=== PATIENT | female | born 1985 | race Caucasian/White ===

== ENCOUNTER 2016-02-26 15:36 | Inpatient (IN) | payer MEDICAID ==
[~2016-02-26] VITALS: Ht 154.9 cm; Wt 70.1 kg
[2016-02-26] MEDS ORDERED: PRENAT PO (16:04)
[2016-02-26 16:05] VITALS: BP 167/82; PULSE 63; RESP 18; Ht 154.9 cm; Wt 70.1 kg
[2016-02-26 16:19] LABS: ADD UMIC YES; URINE BILIRUBIN (Dip) NEGATIVE (NEGATIVE); URINE BLOOD (Dip) NEGATIVE (NEGATIVE); URINE COLOR LT. YELLOW (YELLOW); URINE GLUCOSE (Dip) NEGATIVE (NEGATIVE); URINE KETONES (Dip) NEGATIVE (NEGATIVE); URINE LEUKOCYTE ESTERASE (Dip) 2+ (NEGATIVE); URINE NITRITE (Dip) NEGATIVE (NEGATIVE); URINE TOTAL PROTEIN (Dip) NEGATIVE (NEGATIVE); URINE UROBILINOGEN (Dip) 0.2 E.U./dL (0.1-1.0)
[2016-02-26 16:32] LABS: BASOPHILS % 0.4 % (0.0-2.0); EOSINOPHILS # 0.1 10^3/ul (0.0-0.5); EOSINOPHILS % 1.1 % (0.0-7.0); HEMATOCRIT 34.9 % (37.0-47.0); HEMOGLOBIN 11.9 g/dl (12.0-16.0); LYMPHOCYTES # 1.8 10^3/ul (0.8-2.9); LYMPHOCYTES % 24.7 % (15.0-51.0); MEAN CORPUSCULAR HEMOGLOBIN 30.6 pg (29.0-33.0); MEAN CORPUSCULAR HGB CONC 34.1 g/dl (32.0-37.0); MEAN CORPUSCULAR VOLUME 89.5 fl (82.0-101.0); MEAN PLATELET VOLUME 9.1 fl (7.4-10.4); MONOCYTE # 0.5 10^3/ul (0.3-0.9); MONOCYTES % 7.6 % (0.0-11.0); NEUTROPHIL # 4.7 10^3/ul (1.6-7.5); NEUTROPHILS % 66.2 % (39.0-77.0); PLATELET COUNT 163 10^3/UL (140-440); RED CELL DISTRIBUTION WIDTH 13.4 % (11.5-14.5); UNCORRECTED WBC 7.2 10^3/ul (4.8-10.8); WHITE BLOOD COUNT 7.2 10^3/ul (4.8-10.8)
[2016-02-26 16:34] LABS: ALBUMIN 3.5 g/dl (3.3-4.9)
[2016-02-26 16:35] LABS: CONDITION 1; POTASSIUM 3.9 mmol/L (3.5-5.1)
[2016-02-26 16:36] LABS: SQUAMOUS EPITHELIAL CELL,UR MODERATE; URINE RBCS 0-2 /HPF (0)
[2016-02-26 16:37] LABS: BACTERIA,URINE MANY; BILIRUBIN,INDIRECT 0.5 mg/dl (0-1.1); BILIRUBIN,TOTAL 0.5 mg/dl (0.2-1.3); CREATININE 0.57 mg/dl (0.44-1.00)
[2016-02-26 16:38] LABS: CALCIUM 9.1 mg/dl (8.4-10.2); URIC ACID 4.9 mg/dl (3.1-7.9)
--- NOTE | 2016-02-26 17:28 | RADRPT ---
PROCEDURE: OB ultrasound for biophysical profile CLINICAL INDICATION: Hypertension TECHNIQUE: Multiple sonographic images of the pelvis were obtained. Transabdominal view of the gr avid uterus are available for review. The images were reviewed on a PACS workstation. COMPARISON: None FINDINGS: breathing movement = 2/2 tone = 2/2 motion = 2/2 AQUILINO = 2/2 AQUILINO = 15.7 cm Single live intrauterine with cardiac activity. heart rate equals 143 beats p er minute. Presentation is cephalic. The placenta is posterior. IMPRESSION: 1. Single viable intrauterine gestation. 2. Biophysical profile = 8/8. 3. AQUILINO = 15.7 cm. RPTAT: KK .Casey Rowan MD, MD Date Time Electronically viewed and signed by .Casey Rowan MD, MD on 02/26/2016 17:28 .B/
[2016-02-26] MEDS ORDERED: MAGNESIUM SULFATE 4 GM/100 ML 100 ML IV ONE (18:30)
[2016-02-26] MEDS ORDERED: LABETALOL HCL 20MG INJ IV ONE (18:30)
[2016-02-26] MEDS: LACTATED RINGER'S 1,000 ML IV SCH (18:50)
[2016-02-26] MEDS: MAGNESIUM SULFATE 20 GM/500 ML 500 ML IV SCH (19:19)
[2016-02-26] MEDS: LABETALOL 100 MG TAB PO SCH (21:00)
[2016-02-27] MEDS: MAGNESIUM SULFATE 20 GM/500 ML 500 ML IV SCH (05:30)
[2016-02-27] MEDS: LACTATED RINGER'S 1,000 ML IV SCH ×2 (05:30→18:35)
[2016-02-27] MEDS: LABETALOL 100 MG TAB PO SCH ×2 (09:00→18:07)
[2016-02-27] MEDS: FERROUS SULFATE (EC) 325 MG TAB PO SCH (09:32)
[2016-02-27] MEDS: MULTIVIT/MIN/FOLATE/IRON/PREN TAB PO SCH (09:32)
[2016-02-27] MEDS: BETAMET NA PHOS/AC(6 MG/ML) 5ML INJ IM SCH (17:49)
--- NOTE | 2016-02-27 17:55 | CONS ---
DATE OF ADMISSION: 02/26/2016 DATE OF CONSULTATION: 02/27/2016 HISTORY OF PRESENT ILLNESS: This is a triage consultation for this 30-year-old 2, para 0, ab ortion 1 with EDC of 03/23/2016, which makes her 36 weeks and 2 days now. She came to the triage ar ea due to elevated blood pressure for further evaluation. She also had an elevated alpha fetoprotei n. PHYSICAL EXAMINATION: GENERAL: She appeared to be normal. EARS, NOSE AND THROAT: Normal. NECK: Normal. No neck vein distention, no thyromegaly. CHEST: Lungs clear to auscultation and percussion. ABDOMEN: She did not have much of a contraction. heart tones normal with good variability an d accelerations and no decels. VITAL SIGNS: Her blood pressure was somewhat elevated at 150/80. Her urinalysis was normal. The P IH labs were within normal limits. Her findings were discussed with the attending physician, Dr. Perdomo, and a decision was made to dis charge the patient and to return to the clinic in 2 days for further followup care. Dictated By: SHERRI WATTS MD HF/NTS Conf#: [id number] DID#: [id number]
[2016-02-27 18:22] LABS: BASOPHILS % 0.4 % (0.0-2.0); EOSINOPHILS % 0.3 % (0.0-7.0); HEMATOCRIT 33.3 % (37.0-47.0); HEMOGLOBIN 11.4 g/dl (12.0-16.0); LYMPHOCYTES # 1.4 10^3/ul (0.8-2.9); LYMPHOCYTES % 21.1 % (15.0-51.0); MEAN CORPUSCULAR HEMOGLOBIN 30.5 pg (29.0-33.0); MEAN CORPUSCULAR HGB CONC 34.2 g/dl (32.0-37.0); MEAN CORPUSCULAR VOLUME 89.2 fl (82.0-101.0); MONOCYTE # 0.5 10^3/ul (0.3-0.9); NEUTROPHIL # 4.6 10^3/ul (1.6-7.5); NEUTROPHILS % 70.2 % (39.0-77.0); PLATELET COUNT 156 10^3/UL (140-440); RED BLOOD COUNT 3.73 10^6/ul (4.20-5.40); RED CELL DISTRIBUTION WIDTH 13.7 % (11.5-14.5); UNCORRECTED WBC 6.5 10^3/ul (4.8-10.8); WHITE BLOOD COUNT 6.5 10^3/ul (4.8-10.8)
[2016-02-27 18:27] LABS: INR 0.94; PROTIME 12.6 Sec (12.2-14.2)
[2016-02-27 18:28] LABS: ALBUMIN 3.2 g/dl (3.3-4.9); PARTIAL THROMBOPLASTIN TIME 27.3 Sec (25.0-35.0)
[2016-02-27 18:31] LABS: ALBUMIN/GLOBULIN RATIO 0.91; BILIRUBIN,INDIRECT 0.8 mg/dl (0-1.1); BILIRUBIN,TOTAL 0.8 mg/dl (0.2-1.3); CREATININE 0.61 mg/dl (0.44-1.00); TOTAL PROTEIN 6.7 g/dl (6.1-8.1)
[2016-02-27 18:32] LABS: CALCIUM 7.4 mg/dl (8.4-10.2); CONDITION 1; URIC ACID 5.8 mg/dl (3.1-7.9)
[2016-02-27 18:55] LABS: SCRET 0.61 mg/dl (0.44-1.00)
[2016-02-27 19:33] LABS: ADD UMIC YES; URINE BILIRUBIN (Dip) NEGATIVE (NEGATIVE); URINE BLOOD (Dip) NEGATIVE (NEGATIVE); URINE COLOR LT. YELLOW (YELLOW); URINE GLUCOSE (Dip) NEGATIVE (NEGATIVE); URINE KETONES (Dip) 15 (NEGATIVE); URINE LEUKOCYTE ESTERASE (Dip) 1+ (NEGATIVE); URINE NITRITE (Dip) NEGATIVE (NEGATIVE); URINE TOTAL PROTEIN (Dip) NEGATIVE (NEGATIVE); URINE UROBILINOGEN (Dip) 0.2 E.U./dL (0.1-1.0)
[2016-02-27 19:45] LABS: BACTERIA,URINE FEW; SQUAMOUS EPITHELIAL CELL,UR MODERATE; URINE RBCS NONE SEEN /HPF (0)
[2016-02-28] MEDS: LACTATED RINGER'S 1,000 ML IV SCH ×3 (02:18→15:42)
[2016-02-28] MEDS: FERROUS SULFATE (EC) 325 MG TAB PO SCH (08:39)
[2016-02-28] MEDS: MULTIVIT/MIN/FOLATE/IRON/PREN TAB PO SCH (08:39)
[2016-02-28] MEDS: LABETALOL 100 MG TAB PO SCH ×2 (08:40→20:57)
--- NOTE | 2016-02-28 11:19 | HP ---
Date/Time of Note Date/Time of Note DATE: 02/28/16 TIME: 10:55 OB - History Hx of Present Free Text/Dictation This is a 30 years old female admitted to [facility] from triage unit at 36 weeks and 2 days due to elevated blood pressure for workup for -induced hypertension This patient is being under the care of the [facility] and her course until a few days ago was uneventful she is a para 0 spontaneous 2, on admission patient's blood pressure was running on 168/96 and 171/91 and 166/87 patient has no complaints of headache blurry vision or epigastric pain, urinalysis protein is negative, 24 hours urine collection for protein and creatinine clearance has been sent out which the result will not be ready for several more days currently patient is on labetalol 100 mg twice a day and her blood pressures are since within normal. Perinatology consult requested recommended admission to antepartum unit continue to observe for any elevated blood pressure until gestational age is 37 weeks then attempt delivery, proceed with delivery only for indication Estimated Due Date: Mar 23, 2016 : 3 Para: 0 Spontaneous : 2 Care: Limited Care Ultrasounds: Normal mid trimester US Obstetrical Complications: Gestational Hypertension Medical Complications: None Past Family/Social History * Past Medical, Surgical, Family and Obstetric Histories reviewed from chart. Rubella: immune RPR/VDRL: Negative GBS Status: Unknown HBsAG: Negative OB Admission Exam Vital Signs Vital Signs Vital Signs Date Time Temp Pulse Resp B/P Pulse Ox O2 Delivery O2 Flow Rate FiO2 02/26/16 16:05 97.8 63 18 167/82 Room Air Physical Exam HEENT: WNL Heart: Rhythm Normal Lungs: Clear, Equal Abdomen: WNL Extremities: Normal Reflexes: Normal Cervical Dilatation: None Station: -2 Membranes: Intact Heart Rate: 130's Accelerations: Accelerations Present Decelerations: Variable Decelerations Contractions on Admission: None Last 72 hours Lab Results CBC & BMP 02/26/16 15:55 02/27/16 17:36 Liver Function Test 02/26/16 15:55 02/27/16 17:36 Alanine Aminotransferase (ALT/SGPT) 28 29 Albumin 3.5 3.2 L Alkaline Phosphatase 224 H 255 H Aspartate Amino Transf (AST/SGOT) 24 25 Direct Bilirubin 0.00 0.00 Total Protein 7.0 6.7 Magnesium Level Test 02/27/16 00:18 02/27/16 05:25 Magnesium Level 5.5 *H 6.1 *H ERIC OKEEFE MD Feb 28, 2016 11:13
[2016-02-28] MEDS: BETAMET NA PHOS/AC(6 MG/ML) 5ML INJ IM SCH (18:18)
[2016-02-29] MEDS: LACTATED RINGER'S 1,000 ML IV SCH ×4 (03:33→23:59)
[2016-02-29] MEDS ORDERED: MULTIVIT/MIN/FOLATE/IRON/PREN TAB PO SCH (09:00)
[2016-02-29] MEDS: FERROUS SULFATE (EC) 325 MG TAB PO SCH (09:10)
[2016-02-29] MEDS: MULTIVIT/MIN/FOLATE/IRON/PREN TAB PO SCH (09:10)
[2016-02-29] MEDS: LABETALOL 100 MG TAB PO SCH ×2 (09:11→21:16)
[2016-02-29 12:06] LABS: BASOPHILS % 0.2 % (0.0-2.0); HEMATOCRIT 30.1 % (37.0-47.0); HEMOGLOBIN 10.2 g/dl (12.0-16.0); LYMPHOCYTES # 1.4 10^3/ul (0.8-2.9); LYMPHOCYTES % 16.3 % (15.0-51.0); MEAN CORPUSCULAR HEMOGLOBIN 30.6 pg (29.0-33.0); MEAN CORPUSCULAR HGB CONC 33.9 g/dl (32.0-37.0); MEAN CORPUSCULAR VOLUME 90.2 fl (82.0-101.0); MEAN PLATELET VOLUME 9.2 fl (7.4-10.4); MONOCYTE # 0.4 10^3/ul (0.3-0.9); MONOCYTES % 4.5 % (0.0-11.0); NEUTROPHIL # 6.6 10^3/ul (1.6-7.5); PLATELET COUNT 150 10^3/UL (140-440); RED BLOOD COUNT 3.33 10^6/ul (4.20-5.40); RED CELL DISTRIBUTION WIDTH 13.4 % (11.5-14.5); UNCORRECTED WBC 8.4 10^3/ul (4.8-10.8); WHITE BLOOD COUNT 8.4 10^3/ul (4.8-10.8)
[2016-02-29 12:08] LABS: CONDITION 1
--- NOTE | 2016-02-29 19:28 | PN ---
Date/Time of Note Date/Time of Note DATE: 02/29/16 TIME: 19:26 OB Subjective Subjective Subjective Resting in bed has no complain of headache blurry vision or epigastric pain her current blood pressure is148/73 today she is 36 weeks and 5 days in 2 days at 37 weeks and we are planning for induction per recommendation of perinatologist ERIC OKEEFE MD Feb 29, 2016 19:28
--- NOTE | 2016-02-29 21:25 | NSTRPT ---
NST Information Datetime Report Generated by CPN: 02/29/2016 21:24 Datetime: 02/26/2016 14:13 NST Information EGA: 36.2 Test Number: 7 Time on Monitor: 02/26/2016 14:31 Time off Monitor: 02/26/2016 14:51 NST Duration (Min): 20 Reason for NST: Other Reason for NST Other: Abn AFP, elevated risk NTD Test and Monitor Explained: Monitor Explained; Test Explained Temp : 97.9 Pulse: 62 Resp: 16 SBP: 146 DBP: 87 Test Evaluation NST Interventions: None Patient States Movement: Present Contraction Frequency: NO UC FHR Baseline : 135 Variability: Moderate 6-25bpm Accelerations: 15X15 Decelerations: None FHR Category: Category I NST Results: Reactive Comments: To u/s, CEPHALIC, AQUILINO 15.1 BP 154/93, 150/84, 149/85. NST/AQUILINO reviewed with Dr Zimmer, recommends eval for PIH. 1504-Report c alled to Dr Perdomo, orders received. Report called to Triage. 1518-POC explained to pt, denies furth er questions at this time, pt to triage Electronically Signed By E-Signature: with User ID: [id number] Datetime: 02/22/2016 14:08 NST Information EGA: 35.5 NST Duration (Min): 28 Datetime: 02/20/2016 14:21 NST Information EGA: 35.3 NST Duration (Min): 56 Datetime: 02/15/2016 15:13 NST Information EGA: 34.5 NST Duration (Min): 29 Datetime: 02/13/2016 15:18 NST Information EGA: 34.3 NST Duration (Min): 33 Datetime: 02/08/2016 13:25 NST Information EGA: 33.5 NST Duration (Min): 29 Datetime: 02/05/2016 13:29 NST Information EGA: 33.2 Datetime: 02/05/2016 13:22 NST Duration (Min): 27
[2016-03-01] VITALS (21 sets, daily range): BP systolic 117–150; BP diastolic 60–97; PULSE 60–77; RESP 18–20
[2016-03-01] MEDS ORDERED: LIDOCAINE 1% (MPF) 30 ML INJ INJ PRN
[2016-03-01] MEDS ORDERED: LACTATED RINGER'S 1,000 ML IV PRN
[2016-03-01] MEDS ORDERED: IBUPROFEN 600 MG TAB PO PRN
[2016-03-01] MEDS ORDERED: BUTORPHANOL 2 MG INJ IV PRN
[2016-03-01] MEDS ORDERED: DINOPROSTONE 10 MG VAG SUPP VAG ONE
--- NOTE | 2016-03-01 00:27 | PN ---
Date/Time of Note Date/Time of Note DATE: 03/01/16 TIME: 00:25 OB Subjective Subjective Subjective 30 yo P0 @ [id number], admitted to antepartum unit for PIH, now with worsening BP 's of 170's/100's and headache. I went and spoke with patient and explained that she will be transferred to L&D , we will start magnesium sulfate for siezure prophylaxis, and will start IOL for severe pre-eclampsia. Will have cervidil placed. Explained to patient that if BP's continue to worsen or labs become abnormal, delivery by may be indicated. KAMALJIT MALDONADO MD Mar 01, 2016 00:27
[2016-03-01] MEDS ORDERED: MAGNESIUM SULFATE 4 GM/100 ML 100 ML IVPB ONE (00:30)
[2016-03-01] MEDS ORDERED: LABETALOL HCL 20MG INJ ONE (00:45)
[2016-03-01] MEDS ORDERED: ACETAMINOPHEN 500 MG TAB PO ONE (00:48)
[2016-03-01] MEDS: MAGNESIUM SULFATE 20 GM/500 ML 500 ML IV SCH ×3 (00:55→20:32)
[2016-03-01] MEDS ORDERED: LABETALOL HCL 20MG INJ IV ONE (01:00)
[2016-03-01 01:35] LABS: BASOPHILS % 0.2 % (0.0-2.0); EOSINOPHILS % 0.1 % (0.0-7.0); HEMATOCRIT 33.1 % (37.0-47.0); HEMOGLOBIN 11.2 g/dl (12.0-16.0); LYMPHOCYTES # 1.7 10^3/ul (0.8-2.9); LYMPHOCYTES % 18.6 % (15.0-51.0); MEAN CORPUSCULAR HEMOGLOBIN 30.5 pg (29.0-33.0); MEAN CORPUSCULAR HGB CONC 33.9 g/dl (32.0-37.0); MEAN CORPUSCULAR VOLUME 89.9 fl (82.0-101.0); MONOCYTE # 0.7 10^3/ul (0.3-0.9); MONOCYTES % 7.6 % (0.0-11.0); NEUTROPHIL # 6.6 10^3/ul (1.6-7.5); NEUTROPHILS % 73.5 % (39.0-77.0); PLATELET COUNT 162 10^3/UL (140-440); RED BLOOD COUNT 3.68 10^6/ul (4.20-5.40); RED CELL DISTRIBUTION WIDTH 13.5 % (11.5-14.5); UNCORRECTED WBC 8.9 10^3/ul (4.8-10.8); WHITE BLOOD COUNT 8.9 10^3/ul (4.8-10.8)
[2016-03-01 01:45] LABS: ALBUMIN 3.2 g/dl (3.3-4.9)
[2016-03-01 01:46] LABS: POTASSIUM 3.8 mmol/L (3.5-5.1)
[2016-03-01 01:47] LABS: CREATININE 0.56 mg/dl (0.44-1.00)
[2016-03-01 01:48] LABS: ALBUMIN/GLOBULIN RATIO 0.94; BILIRUBIN,INDIRECT 0.4 mg/dl (0-1.1); BILIRUBIN,TOTAL 0.4 mg/dl (0.2-1.3); TOTAL PROTEIN 6.6 g/dl (6.1-8.1)
[2016-03-01 01:49] LABS: CALCIUM 8.7 mg/dl (8.4-10.2); URIC ACID 4.8 mg/dl (3.1-7.9)
[2016-03-01 02:12] LABS: CONDITION 1
[2016-03-01 02:13] LABS: INR 0.96; PROTIME 12.8 Sec (12.2-14.2)
[2016-03-01 02:14] LABS: PARTIAL THROMBOPLASTIN TIME 23.4 Sec (25.0-35.0)
[2016-03-01] MEDS: LACTATED RINGER'S 1,000 ML IV SCH ×2 (05:18→11:55)
[2016-03-01] MEDS ORDERED: CEFAZOLIN 2 GM/50 ML (PMX) 50 ML IVPB ONE (09:00)
[2016-03-01] MEDS ORDERED: CITRIC ACID/NA CITRATE 30 ML CUP ONE (09:46)
[2016-03-01] MEDS ORDERED: OXYTOCIN 30 UNITS/LR 500 ML IV ONE (10:00)
[2016-03-01] MEDS ORDERED: ONDANSETRON 4 MG INJ ONE (10:00)
[2016-03-01] MEDS ORDERED: morphine SULFATE/PF (10 MG/10 ML) INJ ONE (10:00)
[2016-03-01] MEDS ORDERED: METOCLOPRAMIDE 10 MG INJ ONE (10:01)
[2016-03-01] MEDS ORDERED: KETOROLAC 30 MG INJ ONE (10:59)
[2016-03-01] MEDS ORDERED: DIPHENHYDRAMINE 50 MG INJ IV PRN ×2 (11:00→12:00)
[2016-03-01] MEDS ORDERED: METOCLOPRAMIDE 10 MG INJ IV PRN (11:00)
[2016-03-01] MEDS ORDERED: MEPERIDINE 25 MG INJ IV PRN (11:00)
[2016-03-01] MEDS ORDERED: HYDROmorphONE (0.2 MG/ML) 10ML SYG IV PRN ×3 (11:00)
[2016-03-01] MEDS ORDERED: ONDANSETRON 4 MG INJ IV PRN ×2 (11:00→12:00)
[2016-03-01] MEDS: LABETALOL 100 MG TAB PO SCH (11:55)
[2016-03-01] MEDS: FERROUS SULFATE (EC) 325 MG TAB PO SCH (11:55)
[2016-03-01] MEDS: MULTIVIT/MIN/FOLATE/IRON/PREN TAB PO SCH (11:55)
[2016-03-01] MEDS ORDERED: HYDROmorphONE 1 MG/ML SYG IV PRN ×3 (12:00)
[2016-03-01] MEDS ORDERED: NALOXONE (0.4 MG/ML) INJ IV PRN (12:00)
[2016-03-01] MEDS ORDERED: KETOROLAC 30 MG INJ IV PRN (12:00)
--- NOTE | 2016-03-01 12:02 | OPR ---
DATE OF OPERATION: 03/01/2016 PREOPERATIVE DIAGNOSES: This is a 30-year-old female, 3, para 0, SAB 1 , IAB 1 with EDC of 03/23/2016 at 37 weeks, undergoing a primary section due to severe PIH and failure to respond to induction of labor with blood pressure of 200/96, not anticipating a timely delivery for further trial of labor with treatment for the PIH. This was discussed with the patient, declined further induction and requesting operative delivery. POSTOPERATIVE DIAGNOSES: This is a 30-year-old female, 3, para 0, SAB 1 , IAB 1 with EDC of 03/23/2016 at 37 weeks, undergoing a primary section due to severe PIH and failure to respond to induction of labor with blood pressure of 200/96, not anticipating a timely delivery for further trial of labor with treatment for the PIH. This was discussed with the patient, declined further induction and requesting operative delivery. PROCEDURE: Primary section. SURGEON: Eric Perdomo MD RN PHYSICIAN OFFICE: MD [facility] ANESTHESIA: Spinal. ANESTHESIOLOGIST: Dr. OCAMPO FINDINGS: Live baby girl with the Apgars 7 and 9. DETAILS OF THE PROCEDURE: Under satisfactory spinal anesthesia, the patient was prepped and draped and placed in supine position, tilted to the left. Pfannenstiel incision was made, incision carried through the subcutaneous tissue. Bleeders brought under control with electrocautery. Fascia incised to the length of the incision. Rectus muscle divided in midline. Peritoneum exposed, entered through a transverse incision. Exploration of abdomen revealed a gravid uterus with normal appearing tubes and ovaries. Bladder flap was developed. Transverse incision was made in the lower segment of the uterus. Amniotic sac ruptured. Clear amniotic fluid with a nuchal cord x1 and baby in occiput posterior position was delivered. Nasal oropharyngeal suction was performed. Shoulder delivered without any difficulty and baby handed to the team after cord pulsations stopped and cut, and baby handed to the neonatology team. Placenta delivered intact. Uterine cavity was sent to pathology. Uterine cavity cleaned with a wet sponge and drainage established. Uterus closed in 2 layers using Monocryl #1 in continuous fashion. Peritoneal cavity was irrigated with warm saline. Sponge, needle and instrument reported to be correct. Abdominal peritoneum closed with 2-0 chromic catgut continuously. Rectus muscle approximated with few interrupted 2- 0 chromic catgut. Fascia closed with #1 PDS in a continuous fashion. Subcutaneous tissue approximated with 2-0 chromic catgut and the skin closed with meaghan. Estimated blood loss 600 mL. Urine bag contained 300 mL of clear urine. Patient tolerated procedure well and transferred to recovery room in a good condition. Dictated By: ERIC LEHMAN/STUART Conf#: [id number] DID#: [id number] MTDD
[2016-03-01] MEDS ORDERED: MISOPROSTOL 200 MCG TAB PR PRN ×2 (15:00)
[2016-03-01] MEDS ORDERED: CEFAZOLIN 1 GM/50 ML (PMX) 50 ML IVPB SCH (15:00)
[2016-03-01] MEDS ORDERED: LANOLIN 7 GM TUBE TOP PRN (15:00)
[2016-03-01] MEDS ORDERED: CARBOPROST 250 MCG INJ IM PRN ×2 (15:00)
[2016-03-01] MEDS ORDERED: ACETAMINOPHEN/CODEINE #3 TAB PO PRN ×2 (15:00)
[2016-03-01] MEDS ORDERED: METHYLERGONOVINE 0.2 MG INJ IM PRN ×2 (15:00)
[2016-03-01] MEDS ORDERED: OXYCODONE/ACETAMINOPHEN (5/325) TAB PO PRN ×2 (15:00)
[2016-03-01] MEDS ORDERED: OXYTOCIN 30 UNITS/LR 500 ML IV PRN ×2 (15:00)
[2016-03-01] MEDS: OXYTOCIN 30 UNITS/LR 500 ML IV SCH ×3 (15:07→22:52)
[2016-03-01] MEDS ORDERED: LABETALOL 100 MG TAB PO SCH ×2 (21:00)
[2016-03-02] VITALS (15 sets, daily range): BP systolic 107–148; BP diastolic 66–97; PULSE 65–89; RESP 16–19
[2016-03-02] MEDS: OXYTOCIN 30 UNITS/LR 500 ML IV SCH ×4 (02:52→14:52)
[2016-03-02] MEDS ORDERED: LACTATED RINGER'S 1,000 ML IV SCH (03:00)
[2016-03-02] MEDS: IBUPROFEN 600 MG TAB PO SCH ×4 (06:00→23:43)
[2016-03-02] MEDS: MAGNESIUM SULFATE 20 GM/500 ML 500 ML IV SCH (06:14)
[2016-03-02 09:46] LABS: BASOPHILS % 0.3 % (0.0-2.0); EOSINOPHILS % 0.3 % (0.0-7.0); HEMOGLOBIN 10.5 g/dl (12.0-16.0); MEAN CORPUSCULAR HEMOGLOBIN 30.4 pg (29.0-33.0); MEAN CORPUSCULAR HGB CONC 33.9 g/dl (32.0-37.0); MEAN CORPUSCULAR VOLUME 89.8 fl (82.0-101.0); MEAN PLATELET VOLUME 8.7 fl (7.4-10.4); MONOCYTE # 0.3 10^3/ul (0.3-0.9); MONOCYTES % 4.7 % (0.0-11.0); NEUTROPHIL # 5.8 10^3/ul (1.6-7.5); NEUTROPHILS % 80.7 % (39.0-77.0); PLATELET COUNT 148 10^3/UL (140-440); RED BLOOD COUNT 3.45 10^6/ul (4.20-5.40); RED CELL DISTRIBUTION WIDTH 13.3 % (11.5-14.5); UNCORRECTED WBC 7.2 10^3/ul (4.8-10.8); WHITE BLOOD COUNT 7.2 10^3/ul (4.8-10.8)
[2016-03-02 09:51] LABS: CONDITION 1
--- NOTE | 2016-03-02 13:00 | PN ---
Date/Time of Note Date/Time of Note DATE: 03/02/16 TIME: 12:58 OB Subjective Subjective Subjective Vital sign a stable blood pressure 140/90 has no headache or epigastric pain blurry vision seems alert magnesium sulfate discontinued ambulation recommended we repeat PIH panel for tomorrow ERIC OKEEFE MD Mar 02, 2016 13:00
[2016-03-02] MEDS: SENNA/DOCUSATE NA (8.6MG/50MG) TAB PO SCH (21:03)
[2016-03-03 03:40] VITALS: BP 129/79; PULSE 65; RESP 18
[2016-03-03] MEDS: IBUPROFEN 600 MG TAB PO SCH ×3 (05:17→18:08)
[2016-03-03 08:01] LABS: ALBUMIN 2.6 g/dl (3.3-4.9); POTASSIUM 3.6 mmol/L (3.5-5.1)
[2016-03-03 08:03] LABS: CREATININE 0.67 mg/dl (0.44-1.00)
[2016-03-03 08:04] LABS: ALBUMIN/GLOBULIN RATIO 0.89; BILIRUBIN,INDIRECT 0.7 mg/dl (0-1.1); BILIRUBIN,TOTAL 0.7 mg/dl (0.2-1.3); CALCIUM 7.1 mg/dl (8.4-10.2); TOTAL PROTEIN 5.5 g/dl (6.1-8.1)
[2016-03-03 08:15] VITALS: BP 141/83; PULSE 66; RESP 18
[2016-03-03] MEDS: SENNA/DOCUSATE NA (8.6MG/50MG) TAB PO SCH ×2 (08:39→20:29)
[2016-03-03 12:40] VITALS: BP 119/79; PULSE 88; RESP 18
[2016-03-03 16:15] VITALS: BP 155/99; PULSE 77; RESP 18
--- NOTE | 2016-03-03 17:34 | PN ---
Date/Time of Note Date/Time of Note DATE: 03/03/16 TIME: 17:28 OB Subjective Subjective Subjective Vital sign a stable but her blood pressure record shows sometimes blood pressure is 150s over 90s and more she is not complaining of headache blurry vision epigastric pain and her reflexes are within normal labetalol 100 mg twice a day ordered with the parameter to hold if blood pressure is less than 140/80 ERIC Sullivan MD Mar 03, 2016 17:33
[2016-03-03 18:00] VITALS: BP 126/92; PULSE 87; RESP 18
[2016-03-03] MEDS: LABETALOL 100 MG TAB PO SCH (18:12)
[2016-03-03 20:00] VITALS: BP 134/74; PULSE 81; RESP 18
[2016-03-03] MEDS ORDERED: LABETALOL 100 MG TAB PO SCH (21:00)
[2016-03-04] MEDS: IBUPROFEN 600 MG TAB PO SCH ×3 (00:11→12:27)
[2016-03-04 04:05] VITALS: BP 159/89; PULSE 61; RESP 18
[2016-03-04 08:15] VITALS: BP 128/82; PULSE 78; RESP 19
[2016-03-04] MEDS: LABETALOL 100 MG TAB PO SCH (09:00)
[2016-03-04] MEDS ORDERED: DIPHTH/TET/ACEL PERTUSS (ADULT) 0.5 ML VIAL IM* ONE (09:00)
[2016-03-04] MEDS: SENNA/DOCUSATE NA (8.6MG/50MG) TAB PO SCH (10:13)
--- NOTE | 2016-03-04 12:48 | DS ---
Date/Time of Note Date/Time of Note DATE: 03/04/16 TIME: 12:40 Obstetrical Discharge Record Final Diagnosis Final Diagnosis: Term delivered Section Section: Primary Complications Preg induced Hypertension Condition on Discharge Physical Assessment Last Vitals: Third post day, This patient has had a due to regnancy induce hypertension declined for further trial of labor her blood pressure is ranging somewhere between 169/ 89 to to 134/74 with no complain headache blurry vision or epigastric pain currently she is on labetalol 100 mg twice daily she is being discharged home with a prescription of labetalol 100 mg twice a day and parameter to hold if blood pressure is less than 140/80 also she received a prescription for post C- section pain and recommended appointment in 3 days to be seen at the clinic Voiding: Yes Bowel Movement: Yes Breast: Soft, non-tender, Filling Abdomen and Incision: Healing well dry and clean Calf Tenderness: No Patient Condition: Good ERIC OKEEFE MD Mar 04, 2016 12:48
--- NOTE | 2016-03-04 13:35 | PD.PPDC ---
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 Condition Patient Condition: Good Diet Diet: Resume Regular Diet Activity/Restrictions Activity: Normal Activity Bedrest Restrictions: No Exercising No Lifting No Driving No Sexual Activity Nothing in the Vagina No [place] No Tampons, douche Follow-up Follow-up with Physician: 1, Day/Days Provider Information: Advised to make an appointment to the clinic in 3 days to discontinue meaghan Return to clinic for [employer]CRETE BLOCK [employer]ER Instructions: Fever greater than 101 Excessive Vaginal Bleeding More than 2 pads per hour OB Instructions: Depression Blurried Vision Surgical Instructions: Incisional Drainage Incisional Redness ERIC OKEEFE MD Mar 04, 2016 13:35
== END 2016-03-04 17:04 | disposition home or self-care (01) | DRG 766 ==
LOC: OBT 15:36 → L-D 15:37 → OBT 18:15 → L-D 18:15 → OBG 02-28 21:02 → L-D 03-01 00:10 → PP1 03-01 15:10
PROVIDERS: ADMIT Obstetrics & Gynecology; ATTEND Obstetrics & Gynecology
PROC: 10D00Z1 Extraction of Products of Conception, Low, Open Approach (ICD-10-PCS; principal; 2016-03-01 10:30)
DX: O14.13 Severe pre-eclampsia, third trimester (principal); O69.81X0 Labor and delivery complicated by cord around neck, without compression, not applicable or unspecified; Z3A.36 36 weeks gestation of pregnancy; Z37.0 Single live birth
CPT/HCPCS: 36415; 76818; 80053; 81001; 81003; 82575; 83735; 84560; 85025; 85384; 85610; 85730; 86592; 86900; 86901; 87340; 88307; 90715; 94760; 99464; G0463; J0690; J0702; J1885; J2274; J2405; J2590; J2765; J3475; J7120